=== PATIENT | female | born 1985 | race Caucasian/White ===

== ENCOUNTER → 2019-09-26 13:53 | Outpatient (REF) | payer BC, SELFPAY | LOC: ANHLAB 13:53 | PROVIDERS: PCP Physician Assistant; Visit Provider Nurse Practitioner Family | DX: D22.5 Melanocytic nevi of trunk (principal) | CPT/HCPCS: 88305 ==

== ENCOUNTER → 2019-10-25 12:36 | Outpatient (CLI) | payer BC, SELFPAY ==
--- NOTE | ~2019-10-25 | US_ITS ---
EXAMINATION: US OB <= 14 weeks fetus DATE: 10/25/2019 13:15 INDICATION: First trimester dating TECHNIQUE: Real-time pelvic transabdominal and transvaginal ultrasound was performed. COMPARISON: None. FINDINGS: The uterus measures 9.2 x 5.7 x 6.0 cm. There is an intrauterine gestational sac. A yolk s ac is identified. heart motion is identified measuring 164 beats per minute (bpm) by M-mode Dop pler. The crown rump length measures 1.6 cm , which correlates with an estimated gestational ag e of 8 weeks and 0 day(s) (+/-) 5 day(s). The left ovary is not visualized however no left adnexal abnormality is seen. The right ovary measure s 3.8 x 2.5 x 3.9 cm. There is no free fluid in the pelvis. IMPRESSION: 1. Live intrauterine with an estimated gestational age of 8 weeks and 0 day(s) (+/-) 5 day( s) and an estimated delivery date of 06/05/2020. Reviewed, dictated and finalized at location A. IMPRESSION: 1. Live intrauterine with an estimated gestational age of 8 weeks and 0 day(s) (+/-) 5 day(s) and an estimated delivery date of 06/05/2020.
== END ==
PROVIDERS: Visit Provider Obstetrics & Gynecology
DX: O26.21 Pregnancy care for patient with recurrent pregnancy loss, first trimester (principal); Z3A.08 8 weeks gestation of pregnancy
CPT/HCPCS: 76801

== ENCOUNTER → 2020-01-05 07:19 | Outpatient (CLI) | payer BC, SELFPAY ==
--- NOTE | ~2020-01-05 | US_ITS ---
US OB >= 14 weeks Fetus DATE: 01/05/2020 08:33 INDICATION: anatomy survey TECHNIQUE: Real-time imaging and Doppler analysis COMPARISON: 10/25/2019 obstetrical ultrasound FINDINGS: Live knapp intrauterine gestation, fetus in vertex presentation. The placenta is anteri or, with the lower margin 3.9 cm above the internal os. There is a subjectively normal amount of amni otic fluid. The placenta is anterior. Cerebral ventricles and cerebellum appear normal. Normal nuchal fold. The spine appears normal on transverse and longitudinal views. upper lip appears normal. spine appears intact on t ransverse and longitudinal views. 4 chamber heart. The diaphragm is intact. Fluid is demo nstrated in the stomach and urinary bladder. The kidneys appear normal, without elpidio dence of hydronephrosis. Three-vessel umbilical cord with normal appearing insertion at abdomin al wall. movement is demonstrated. heart rate 147 bpm. Biparietal diameter 4.19 cm; 18 weeks 5 days estimated gestational age Head circumference 15.43 cm; 18 weeks 3 days Abdominal circumference 13.02 cm; 18 weeks 4 days Femur length 2.65 cm; 18 weeks Composite age by Hadlock formula is 18 weeks 3 days +/- 1 week 2 days; ODELL by current ultrasound woul d be 06/04/2020, comparing closely to the ODELL of 06/05/2020 by both LMP and the prior obstetrical ultra sound examination of 10/25/2019. Estimated weight is 235.2 +/- 35.3 g. HC/AC 1.19, within normal range of 1.08-1.27 Femur length/head circumference 17.17, within normal range of 15.93-18.13 IMPRESSION: Normal anatomy survey Reviewed, dictated and finalized at Location A. Reviewed, dictated and finalized at location A. IMPRESSION: Normal anatomy survey
== END ==
PROVIDERS: Visit Provider Obstetrics & Gynecology
DX: Z34.92 Encounter for supervision of normal pregnancy, unspecified, second trimester (principal); Z3A.00 Weeks of gestation of pregnancy not specified
CPT/HCPCS: 76805

== ENCOUNTER 2020-04-30 16:17 | Observation (INO) | payer BC, SELFPAY ==
[2020-04-30 17:42] VITALS: BP 117/71; PULSE 89
[2020-04-30 17:45] VITALS: BP 127/75; PULSE 100; BMI 29.7
[2020-04-30] MEDS: TERBUTALINE SULFATE 1 MG/ML VIAL 0.25 MG SUB-Q (17:45)
--- NOTE | 2020-04-30 17:45 | OBADM ---
This patient, Lily Diallo, admitted to the OB room Labor/Delivery/Recovery 118 for observation. Patient/family oriented to hospital policies and general routines including ID bracelet, bed and alarms, visiting hours, pain management, procedures, bathroom and other care routines, personal items, smoking policy, room service/diet, and visiting hours. Patient/Family are encouraged to report perceived risks to care and to ask questions if they do not understand what they are told or what they should do.
[2020-04-30 18:00] VITALS: BP 128/81; PULSE 141
[2020-04-30 18:15] VITALS: BP 95/56; PULSE 101
--- NOTE | 2020-05-24 09:32 | PM.OBTRLD ---
OB - Triage/Final Diagnosis Visit Information Comments/Additional reasons for admission: I have assessed the risk for this patient, Lily Diallo, and determined that she would benefit from observation care. Final Diagnosis (1) contractions: Code(s): O47.9 - False labor, unspecified Status: Acute
== END 2020-04-30 18:53 | disposition home or self-care (01) ==
PROVIDERS: Admitting Provider Obstetrics & Gynecology; PCP Physician Assistant; Visit Provider Obstetrics & Gynecology
DX: O47.03 False labor before 37 completed weeks of gestation, third trimester (principal); Z3A.34 34 weeks gestation of pregnancy
CPT/HCPCS: 96372; G0378; G0379; J3105

== ENCOUNTER 2020-05-27 09:26 | Outpatient (RCR) | payer BC, SELFPAY ==
[2020-04-15 09:58] VITALS: BP 113/67; PULSE 105
[2020-04-19 09:38] VITALS: BP 108/65; PULSE 90
[2020-04-22 09:54] VITALS: BP 114/67; PULSE 99
[2020-04-26 10:07] VITALS: BP 111/65; PULSE 93
[2020-05-03 09:52] VITALS: BP 104/68; PULSE 115
[2020-05-06 14:52] VITALS: BP 131/75; PULSE 93
[2020-05-10 13:35] VITALS: BP 127/78; PULSE 101
[2020-05-13 09:55] VITALS: BP 115/69; PULSE 101
[2020-05-16 16:41] VITALS: BP 123/69; PULSE 95
[2020-05-20 09:49] VITALS: BP 117/73; PULSE 97
[2020-05-24 09:58] VITALS: BP 124/72; PULSE 105
[2020-05-27 09:53] VITALS: BP 119/69; PULSE 116
== END 2020-06-02 08:15 | disposition home or self-care (01) ==
LOC: ANHOBOP 09:26
PROVIDERS: PCP Physician Assistant; Visit Provider Obstetrics & Gynecology
DX: O24.419 Gestational diabetes mellitus in pregnancy, unspecified control (principal); Z3A.32 32 weeks gestation of pregnancy; Z3A.33 33 weeks gestation of pregnancy; Z3A.34 34 weeks gestation of pregnancy; Z3A.35 35 weeks gestation of pregnancy; Z3A.36 36 weeks gestation of pregnancy; Z3A.37 37 weeks gestation of pregnancy; Z3A.38 38 weeks gestation of pregnancy
CPT/HCPCS: 59025

== ENCOUNTER 2020-05-30 04:55 | Inpatient (IN) | payer BC, SELFPAY ==
[2020-05-30] VITALS (71 sets, daily range): BP systolic 88–131; BP diastolic 46–90; PULSE 36–116; RESP 16–20; TEMP 36.2–37.3; O2SAT 96–100; BMI 30.3
[2020-05-30 05:38] LABS: Glucose Point of Care 95 (65-105)
[2020-05-30 05:41] LABS: Basophils Percent Auto 0.4 % (0.2-1.2); Eosinophils Absolute Auto 0.2 K/mm3 (0-0.3); Eosinophils Percent Auto 1.5 % (0-4.4); Hematocrit 40.1 % (37.0-47.0); Hemoglobin 13.4 g/dL (12.0-15.0); Immature Granulocyte Absolute 0.11 K/mm3 (0.00-0.031); Immature Granulocyte Percent A 1.1 % (0-0.5); Lymphocytes Absolute Auto 2.02 K/mm3 (0.9-3.2); Lymphocytes Percent Auto 19.3 % (18.3-44.2); Mean Corpuscular HGB Conc 33.4 g/dl (32-36); Mean Corpuscular Hemoglobin 30.5 pg (26-34); Mean Corpuscular Volume 91.3 fl (80-100); Monocytes Absolute Auto 0.7 K/mm3 (0.1-0.6); Monocytes Percent Auto 6.8 % (2.6-8.5); Neutrophils Absolute Auto 7.4 K/mm3 (1.3-6.7); Neutrophils Percent Auto 70.9 % (45.5-73.1); Platelet Count Result 166 k/mm3 (150-375); Red Blood Count 4.39 M/mm3 (4.2-5.4); Red Cell Distribution Width 13.3 % (11.5-14.5); White Blood Count 10.5 K/mm3 (4.5-10.0)
--- NOTE | 2020-05-30 05:49 | LDADM ---
This patient, Lily Diallo, was admitted to Labor/Delivery/Recovery 104 on 05/30/20 at 04:55. Plans for labor, pain management and were discussed with patient. Patient/family oriented to hospital policies and general routines including ID bracelet, bed and alarms, visiting hours, pain management, procedures, bathroom and other care routines, personal items, smoking policy, room service/diet and guest tray routines, security routines, and visiting hours. Patient/Family are encouraged to report perceived risks to care and to ask questions if they do not understand what they are told or what they should do. See OBIX for further documentation.
[2020-05-30] MEDS: ONDANSETRON INJ 4 MG/2 ML VIAL IV PUSH (06:28)
[2020-05-30] MEDS: LACTATED RINGERS 1,000 ML 125 ML IV CONT (06:28)
--- NOTE | 2020-05-30 06:31 | WPDANESEPP ---
Anes - Eval Pre Procedure Procedure: labor epidural Date/Time: 05/30/20 06:06 Surgeon: Darnell Preop Diagnosis: labor pain Pre Op Diagnosis: Induction of Labor Patient Data Age: 34 Gender: F Height: 1.64 m Weight: 82 kg Last Vital Signs Pulse 98 05/30/20 06:29 BP 110/65 05/30/20 06:29 Pulse Ox 100 05/30/20 06:29 Allergies Allergy/AdvReac Type Severity Reaction Status Date / Time No Known Allergies Allergy Verified 10/05/19 09:54 Home Medications Medication Instructions Recorded Confirmed Type PNV cmb#95-ferrous fumarate-FA 1 tablet PO HS 04/19/20 05/10/20 History [] ergocalciferol (vitamin D2) 50,000 unit PO WEEKLY 04/19/20 05/27/20 History [Vitamin D2] insulin NPH isoph U-100 human 6 unit SUBCUT HS 04/19/20 05/10/20 History sertraline 50 mg PO HS 04/19/20 05/10/20 History Laboratory Tests 05/30/20 05/30/20 05/30/20 05:32 05:34 05:34 WBC 10.5 K/mm3 H K/mm3 (4.5-10.0) RBC 4.39 M/mm3 M/mm3 (4.2-5.4) Hgb 13.4 g/dL g/dL (12.0-15.0) Hct 40.1 % % (37.0-47.0) MCV 91.3 fl fl (80-100) MCH 30.5 pg pg (26-34) MCHC 33.4 g/dl g/dl (32-36) RDW 13.3 % % (11.5-14.5) Plt Count 166 k/mm3 k/mm3 (150-375) MPV 11.0 fl H fl (7.4-10.4) Immature Gran % (Auto) 1.1 % H % (0-0.5) Neut % (Auto) 70.9 % % (45.5-73.1) Lymph % (Auto) 19.3 % % (18.3-44.2) Coffey % (Auto) 6.8 % % (2.6-8.5) Eos % (Auto) 1.5 % % (0-4.4) Baso % (Auto) 0.4 % % (0.2-1.2) Lymph # (Auto) 2.02 K/mm3 K/mm3 (0.9-3.2) Coffey # (Auto) 0.7 K/mm3 H K/mm3 (0.1-0.6) Eos # (Auto) 0.2 K/mm3 K/mm3 (0-0.3) Baso # (Auto) 0.0 K/mm3 K/mm3 (0.0-0.1) Abs Immat Gran (auto) 0.11 K/mm3 H K/mm3 (0.00-0.031) Absolute Neuts (auto) 7.4 K/mm3 H K/mm3 (1.3-6.7) Absolute Nucleated RBC 0.0 K/mm3 K/mm3 (0.0-0.012) Nucleated RBC % 0.0 % % (0.0-0.2) POC Capillary Glucose 95 mg/dl mg/dl (65-105) RPR Pending Patient hx anesthesia problems: none Family hx anesthesia problems: none [facility] Past Medical History Medical History (Updated 05/30/20 @ 06:32 by Skyler Bennett CRNA) contractions Family History Family History (Updated 05/10/20 @ 13:43 by Carmen Angela RN) Father Malignant neoplasm of prostate Hypertension Social History Social History Smoking status: Never smoker Substance use: never Spiritual care concerns: No Exam Day of Procedure 05/30/20 06:31 Patient weight: normal Heart: regular rate and rhythm Lungs: clear to auscultation and normal air movement Airway: Mallampati scale class II Neurological: alert and oriented
[2020-05-30] MEDS: OXYTOCIN 30 UNITS/NS 500 ML 30 UNITS/500 ML BAG IV CONT ×2 (06:47→11:25)
--- NOTE | 2020-05-30 07:56 | WPDOBADMIT ---
Obstetrics - Admit Note Admission Note: AROm meconium stained fluid record reviewed. No pertinent additions to the history and/or any subsequent changes in the physical findings that are not consistent with the expected course of the were found. Additions to the history and/or subsequent changes in the physical findings follow. None.
[2020-05-30 09:13] LABS: Glucose Point of Care 69 (65-105)
--- NOTE | 2020-05-30 11:09 | PM.OBPRVD ---
OB - Delivery Note Procedure Delivery date: 05/30/20 events: Gestational Diabetes Intrapartal events: None Induction method: AROM and per pitocin protocol Delivery monitor: external FHT and external uterine Route of delivery: Laceration Description: Vaginal - 2nd Degree Delivery repair: vicryl Quantitative Blood Loss (ml): 310 Anesthesia type: Epidural Disposition: floor Narrative: mild shoulder dystocia. Cody and rotation of posterior shoulder and gentle traction. Baby Date of : 05/30/20 Time of : 10:49 Weeks of gestation at delivery: 39 Weight (pounds): 8 Weight (ounces): 6 presentation: vertex position: Right Occiput Anterior Placenta delivery description: Spontaneous cord vessel description: 3 Vessels, Nuchal Cord and Loose score one minute: 6 score five minutes: 8
[2020-05-30 11:38] LABS: Rapid Plasma Reagin Non-Reactive (NonReactive)
[2020-05-30] MEDS: WITCH HAZEL 40 PADS 1 PAD TOPICAL (12:43)
[2020-05-30] MEDS: BENZOCAINE 20% AER SPR (*SP) 56 GM CAN 1 SPRAY TOPICAL (12:43)
--- NOTE | 2020-05-30 13:26 | OBPPTRN ---
Patient transferred to post room # 280 via wheelchair. Support person present. Oriented to unit, room, information board, rooming in, admission packet and security measures. Patient verbalizes understanding.
[2020-05-30] MEDS: ACETAMINOPHEN 325 MG TABLET 650 MG PO (17:06)
[2020-05-30] MEDS: IBUPROFEN 600 MG TABLET PO (19:19)
[2020-05-30] MEDS: MULTIVIT/MIN/PREN/FOL AC/IRON TABLET 1 TAB PO (20:11)
[2020-05-30] MEDS: SERTRALINE HCL 50 MG TABLET PO (20:11)
[2020-05-31 04:35] VITALS: BP 121/74; PULSE 70; RESP 18; TEMP 36.5; O2SAT 100
[2020-05-31] MEDS: IBUPROFEN 600 MG TABLET PO (04:36)
[2020-05-31 05:29] LABS: Hematocrit 38.2 % (37.0-47.0); Hemoglobin 12.5 g/dL (12.0-15.0)
[2020-05-31 09:00] VITALS: BP 114/72; PULSE 96; RESP 20; TEMP 36.7
--- NOTE | 2020-05-31 10:16 | WPDANLDPN2 ---
Anes-Prog Note L&D Date/Time: 05/31/20 10:16 Comfortable throughout: labor and delivery Neuraxial method: epidural Epidural/Spinal procedure site: clean & non-tender Neuro status: Neuro function grossly intact. Cardiovascular status: normal Respiratory status: normal Airway patency: baseline Mental status: baseline Post-Op hydration status: normal Vital Signs: Last Vital Signs Temp 36.7 C 05/31/20 09:00 Pulse 96 05/31/20 09:00 Resp 20 05/31/20 09:00 BP 114/72 05/31/20 09:00 Pulse Ox 100 05/31/20 04:35 Pain score (VAS): no complaints Post-procedural complaints: none Patient feedback: Patient satisfied with anesthetic care.
--- NOTE | 2020-05-31 11:44 | PM.OBPNVD ---
OB - PN: Subj Subjective Date/time seen: 05/31/20 11:44 Patient comments: no complaints and pain well controlled baby status: doing well and bottle feeding well OB - PN: Obj Data Labs CBC & Chem 7: 05/31/20 04:42 Labs: Laboratory Results - last 24 hr 05/31/20 04:42 Hgb 12.5 Hct 38.2 OB - PN A/P Plan day: 1 Plan: routine care, discharge home, follow up 6 weeks and other (plans Trinessa until vasectomy) Time Spent With Patient Time: Total time spent is greater than 50% in coordination of care (as documented) at patient's floor/unit and/or counseling patient: Exam : Bimanual exam- vagina & uterus: other (Uterus firm, nt @U)
[2020-06-02 08:25] VITALS: BP 128/76; PULSE 107; RESP 20; TEMP 36.7; O2SAT 100
--- NOTE | 2020-06-30 01:59 | PM.OBDSVD ---
DS: Admitting Diagnosis Admitting Diagnosis Admitting Diagnosis: induction of labor DS: Discharge Diagnosis Discharge Diagnosis (1) (normal spontaneous vaginal delivery): Code(s): O80 - Encounter for full-term uncomplicated delivery Status: Acute OB - DS: Summary OB Procedures : NST and Ultrasound OB Procedures Intrapartum: Spontaneous Vag Delivery OB Procedures: : None Peripartum Data Infant Delivery Method: Natural Vaginal Laceration Description: Vaginal - 2nd Degree complications: none Time Spent with Patient Time attestation: Total time spent providing and/or coordinating discharge services: DS: Data Data Completed and Pending Completed studies during hospitalization: Pending at discharge 05/30/20 10:56 Surgical [PTH] Routine Discharge Plan Discharge Attending physician on discharge: Saul Patrick Discharging Clinician: Julita Watkins Anticipated Discharge Date/Time: 05/31/20 11:44 Patient Disposition: Home, Self-Care Activity: may shower and pelvic rest Diet: regular Discharge Instructions: Education: Mom and Baby Guide Given to: Mother Follow-Up: Call your delivering provider's office for an appointment to be seen in: 6 Weeks Mom and baby should come to the [facility] for the follow-up appointment. Appointment Date/Time: June 02, 2020 at 8:00 am What to expect at your follow-up visit: Physical Assessment Call [phone] if you are unable to keep your appointment time. BREAST CARE: * Wear a snug supportive bra. * For engorgement discomfort: Bottle Feeding: * May apply ice packs PERINEAL CARE: * Until bleeding stops, use your linn bottle after urinating * Change your pad frequently throughout the day * No tub baths until seen by your physician - You may shower ACTIVITY: * Rest as much as possible. * Do not exercise or lift anything heavier than your baby (such as laundry or other children.) * Avoid stairs or driving as much as possible. * Do not put anything into the vagina. No douching, tampons, or sexual activity until seen by physician. NOTIFY PHYSICIAN IF YOU HAVE ANY QUESTIONS OR IF ANY OF THE FOLLOWING SYMPTOMS OCCUR: * If your perineum becomes red, swollen, or more painful than what you have experienced in the hospital. * If your vaginal bleeding becomes foul smelling. * If your vaginal bleeding becomes more heavy than a period or if your bleeding changes from pink to bright red. However, you may pass an occasional walnut-sized clot once or twice for the first week . * If you experience a sharp, shooting pain in you calves. * If you discover a hard, reddened area on your breast or if you experience flu-like symptoms. DIET: * Eat regular, well-balanced meals. * Drink plenty of fluids daily. Patient Instructions: Antibiotic Form Stand Alone Forms: General Discharge Information Follow-up/Referrals: Saul Patrick MD [Physician] - 6 Weeks Discharge Medications: New norgestimate-ethinyl estradiol 0.18/0.215/0.25 mg-35 mcg (28) tablet 1 tablet PO DAILY Qty: 84 RF: 1 Continued ergocalciferol (vitamin D2) [Vitamin D2] 1,250 mcg (50,000 unit) Capsule 50,000 unit PO WEEKLY Qty: 12 RF: 4 sertraline 50 mg tablet 50 mg PO HS RF: 0 PNV cmb#95-ferrous fumarate-FA [] 28 mg iron- 800 mcg Tablet 1 tablet PO HS RF: 0 Discontinued insulin NPH isoph U-100 human 100 unit/mL Cartridge 6 unit SUBCUT HS RF: 0 Date of admission: 05/30/20 04:55 Primary Care Provider: Emelyn,Yvonne Admitting Provider: Saul Patrick Attending physician on admission: Julita Watkins Condition: Stable
== END 2020-05-31 14:00 | disposition home or self-care (01) | DRG 807 ==
LOC: ANHOB2 05-31 11:49 → ANHLDR 06-03 06:46 → ANHOB2 06-03 06:46
PROVIDERS: Admitting Provider Obstetrics & Gynecology; PCP Physician Assistant; Visit Provider Obstetrics & Gynecology Gynecology
DX: O24.429 Gestational diabetes mellitus in childbirth, unspecified control (principal); Z37.0 Single live birth; Z3A.39 39 weeks gestation of pregnancy; O70.1 Second degree perineal laceration during delivery; O66.0 Obstructed labor due to shoulder dystocia; O69.81X0 Labor and delivery complicated by cord around neck, without compression, not applicable or unspecified; O99.344 Other mental disorders complicating childbirth; F41.9 Anxiety disorder, unspecified
CPT/HCPCS: 36415; 82948; 85014; 85018; 85025; 86592; 86850; 86900; 86901; 88307; A9270; J2405; J2590; J2795; J7120

== ENCOUNTER 2023-04-01 10:09 | Emergency (ER) | payer BC, SELFPAY ==
--- NOTE | ~2023-04-01 | XR_ITS ---
Left Hand Technique: PA, oblique, and lateral views were obtained. Clinical History: Laceration Findings: No acute fracture or dislocation is seen. Osseous alignment is anatomic. Joint spaces are p reserved. Soft tissues are unremarkable. Impression: Unremarkable left hand. Reviewed, dictated and finalized at location M. MODELING SPECIALIST Impression: Unremarkable left hand.
[2023-04-01 10:15] VITALS: BP 120/73; PULSE 98; RESP 18; TEMP 36.8; O2SAT 99
--- NOTE | 2023-04-01 11:54 | ED.WOUNDLAC ---
HPI - Wound/Laceration General Chief Complaint: Wound/Laceration Stated Complaint: hand lac Time Seen by Provider: 04/01/23 10:44 History of Present Illness HPI narrative: 37-year-old female reports for evaluation for laceration to her left palm that occurred prior to arrival. Patient states she accidentally broke a wine glass and tried to catch , cutting her left palm on a shard of glass. Last tetanus unknown. Denies difficulty with range of motion of her fingers. Related Data Home Medications Medication Instructions Recorded Confirmed sertraline 50 mg tablet 50 mg PO HS 04/19/20 04/01/23 Allergies Allergy/AdvReac Type Severity Reaction Status Date / Time No Known Allergies Allergy Verified 04/01/23 10:18 Review of Systems Review of Systems: CONSTITUTIONAL: Denies fever, chills, or sweats. EYES: Denies visual changes, redness, or discharge. ENT: Denies rhinorrhea, congestion, sore throat, or otalgia. CARDIOVASCULAR: Denies chest pain, palpitations, or edema. RESPIRATORY: Denies cough or dyspnea. GASTROINTESTINAL: Denies abdominal pain, nausea, vomiting, or diarrhea. GENITOURINARY: Denies dysuria or hematuria. SKIN: See HPI MUSCULOSKELETAL: Denies back pain, joint pain, or myalgia. NEUROLOGIC: Denies headache, numbness, or weakness. PSYCHIATRIC: Denies anxiety or depression. [facility] Past Medical History Medical History (normal spontaneous vaginal delivery) contractions Family History Family History Father Malignant neoplasm of prostate Hypertension Social History Social History Smoking status: Never smoker Substance use: never Spiritual care concerns: No Exam Narrative: GENERAL: Well-appearing, well-nourished, and in no acute distress. HEAD: Normocephalic, atraumatic NECK: Supple. CHEST: Clear to auscultation. No respiratory distress. HEART: Regular rate and rhythm. No murmur heard. Normal peripheral pulses. EXTREMITIES: Normal range of motion. No edema. SKIN: 1 cm laceration to the distal 3rd metacarpal with mild bleeding. Most of the laceration is superficial with a small area that extends into the subcutaneous tissue. No deep structures or foreign bodies visualized. Patient has full range of motion of all of her digits. NEURO: No focal deficits. Alert and oriented x3 Course Vital Signs Vital signs: Vital Signs Temperature 98.3 F 04/01/23 10:15 Pulse Rate 98 04/01/23 10:15 Respiratory Rate 18 04/01/23 10:15 Blood Pressure 120/73 04/01/23 10:15 Pulse Oximetry 99 04/01/23 10:15 Temperature 98.3 F 04/01/23 10:15 Pulse Rate 98 04/01/23 10:15 Respiratory Rate 18 04/01/23 10:15 Blood Pressure 120/73 04/01/23 10:15 Pulse Oximetry 99 04/01/23 10:15 Procedures Laceration Laceration 1: Date: 04/01/23 Time: 11:57 Site: hand Side (If applicable): left Size (cm): 1 Description: linear Depth: simple, single layer Local Anesthetic: lidocaine 1% Amount of anesthesia used (mL): 2 Pre-repair: wound explored, irrigated and irrigated extensively ====== Skin Level ====== Skin layer closed with: nylon Size (cm): 5-0 Number of sutures: 1 Technique: simple, interrupted ====== Subcutaneous Layer ====== ====== Muscle Layer ====== ====== Tendon Layer ====== MDM - Wound/Laceration MDM Narrative Medical decision making narrative: 37-year-old female reports for evaluation for laceration to the left palm that occurred prior to arrival. See HPI for further history. Vitals are stable. Exam is significant for the above. X-ray shows no abnormality or foreign body visualized. Local anesthetic applied and 1 suture placed without complications.
[2023-04-01] MEDS: LIDOCAINE HCL 1% LOCAL INJ 10 ML VIAL 5 ML INFILTRATE (12:06)
[2023-04-01] MEDS: TETANUS,DIPHTHERIA,AC PERTUSSIS ADULT (0.5 ML) BOOSTRIX IM (12:06)
[2023-04-01 12:10] VITALS: BP 119/76; PULSE 67; RESP 15; O2SAT 100
== END 2023-04-01 12:11 | disposition home or self-care (01) ==
PROVIDERS: Emergency Provider Physician Assistant; PCP Physician Assistant
DX: S61.412A Laceration without foreign body of left hand, initial encounter (principal); Z23 Encounter for immunization; W25.XXXA Contact with sharp glass, initial encounter
CPT/HCPCS: 12001; 73130; 90471; 90715; 99283

== ENCOUNTER 2023-06-27 09:20 | Outpatient (CLI) | payer BC, SELFPAY ==
--- NOTE | ~2023-06-27 | MMUS_ITS ---
EXAMINATION: MM diagnostic imna BI w miranda, US breast BI complete HISTORY: 12:00 right breast lump reportedly palpated by referring physician TECHNIQUE: ML, MLO and CC 3-D tomosynthesis images of both breasts were performed and synthetic 2-D i mages were generated. CAD analysis was submitted and interpreted. High resolution bilateral complete breast ultrasound examination including all 4 quadrants and subareolar areas was performed. COMPARISON: None BREAST PARENCHYMAL COMPOSITION: The breasts are extremely dense, which lowers the sensitivity of mamm ography. FINDINGS: MAMMOGRAPHIC FINDINGS: There is a biopsy marker in the central right breast; history of prior benign right breast biopsy. No reproducible suspicious mass, architectural distortion or any malignant calcification, skin thicke alyx or retraction is evident. The extremely dense stroma however limits the sensitivity of the mammo gram examination and may obscure masses. Complete bilateral breast ultrasound examination was perform ed. ULTRASOUND: Right breast: 1:00 4 cm from nipple: Parallel circumscribed mildly complicated cyst, with through transmission post erior enhancement. This lesion measures approximately 3.8 x 8 x 3.7 mm. There is no internal vascular ity. The sonographic features suggest probably benign finding. No suspicious mass or shadowing or other significant sonographic abnormality of either breast is dete cted. IMPRESSION: 1. Probably benign, dictated cysts of right breast 1:00 4 cm from nipple 2. Six-month targeted right breast ultrasound follow-up examination is recommended BI-RADS category 3, probably benign findings. Reviewed, dictated and finalized at location A. IMPRESSION: 1. Probably benign, dictated cysts of right breast 1:00 4 cm from nipple 2. Six-month targeted right breast ultrasound follow-up examination is recommen ded BI-RADS category 3, probably benign findings.
== END 2023-06-27 09:21 | disposition home or self-care (01) ==
PROVIDERS: PCP Physician Assistant; Visit Provider Nurse Practitioner
DX: R92.8 Other abnormal and inconclusive findings on diagnostic imaging of breast (principal)
CPT/HCPCS: 76641; 77062; 77066; G0279

== ENCOUNTER 2024-02-03 10:16 | Outpatient (CLI) | payer BC, SELFPAY ==
--- NOTE | ~2024-02-03 | US_ITS ---
EXAMINATION TYPE: US breast RT limited COMPARISON: 06/27/2023 REASON FOR STUDY: Right breast cyst TECHNIQUE: Targeted sonographic evaluation of the right breast was performed. INTERPRETATION: At the 1:00 position right breast, 4 cm from the nipple, there is a 10 x 4 x 11 mm somewhat lobulated parallel, wider than tall anechoic cyst. There is an adjacent additional 5 mm simple cyst. No solid or otherwise suspicious lesions seen in the regions scanned. IMPRESSION: Benign, simple cysts in the right breast at the 1:00 position, as detailed above. No suspicious lesio n identified. BI-RADS CATEGORY: BI-RADS 2: Benign Reviewed, dictated and finalized at location M. STERED NURSE MIDWIFE IMPRESSION: Benign, simple cysts in the right breast at the 1:00 position, as detailed abov e. No suspicious lesion identified. BI-RADS CATEGORY: BI-RADS 2: Benign
== END 2024-02-03 10:17 | disposition home or self-care (01) ==
LOC: CHSIMG 10:17
PROVIDERS: PCP Physician Assistant; Visit Provider Obstetrics & Gynecology Gynecology
DX: R92.8 Other abnormal and inconclusive findings on diagnostic imaging of breast (principal)
CPT/HCPCS: 76642

== ENCOUNTER 2024-03-18 19:21 | Emergency (ER) | payer BC, SELFPAY ==
[2024-03-18 19:28] VITALS: BP 133/73; PULSE 107; RESP 16; TEMP 36.9; O2SAT 99
--- NOTE | 2024-03-18 19:28 | ED.URI ---
HPI - URI/Sore Throat General Chief Complaint: Upper Respiratory Infection Stated Complaint: sorethroat Source: patient, RN notes reviewed and old records reviewed Mode of arrival: ambulatory Limitations: no limitations History of Present Illness HPI Narrative: Patient presents with complaints of 3 day history of sore throat. She became worried today when throat pain worsened and she developed some body aches. She denies any fever, chills, sweats. She has been taking ibuprofen for pain with moderate relief. She is able to swallow without difficulty, although she does state this hurts more. She voices no other concerns or complaints at this time. Related Data Home Medications ?Medication ?Instructions ?Recorded ?Confirmed ?Last Taken ?Type fluoxetine 20 mg capsule 20 mg PO QPM 03/18/24 03/18/24 Unknown History Allergies Allergy/AdvReac Type Severity Reaction Status Date / Time No Known Allergies Allergy Verified 03/18/24 19:24 Review of Systems Review of Systems: All systems reviewed & are unremarkable except as noted in HPI and below Constitutional: Constitutional: Reports no additional constitutional complaints and Reports body ache(s) ENT: Reports system reviewed and no additional complaints, except as documented and Reports sore throat Cardiovascular: Cardiovascular: Reports no additional cardiovascular complaints Respiratory: Respiratory: Reports no additional respiratory complaints Gastrointestinal: Gastrointestinal: Reports no additional gastrointestinal complaints [facility] Past Medical History Medical History (normal spontaneous vaginal delivery) contractions Family History Family History Father Malignant neoplasm of prostate Hypertension Social History Social History Smoking status: Never smoker Substance use: never Spiritual care concerns: No Comments At the time of my signature, I reviewed and agree with the nursing past medical, surgical, social, and family history. There is no relevant family history pertinent to the patient complaint. Exam Const: General: cooperative, no acute distress, alert and awake Orientation/consciousness: oriented to person, oriented to place and oriented to time HENMT: Head: normal to inspection Ears: TM's normal bilaterally Mouth: Yes moist mucous membranes Throat: posterior oropharynx abnormal erythema and exudates Resp: Effort & Inspection: normal respiratory effort and able to speak in complete sentences Auscultation: clear to auscultation bilaterally, no crackles, no rales, no rhonchi and no wheezes Cardio: Palpation: normal PMI Rate: regular rate Rhythm: regular rhythm Heart sounds: S1 normal heart sound present and S2 normal heart sound present Neuro: General: oriented to person, oriented to place and oriented to time Cranial nerves: Yes CN's II-XII intact bilaterally Psych: Appearance: grossly normal Thought process: Normal thought process present Insight: Good insight present (Psych) Judgement: Good judgement present (Psych) Course Course Level of Care: Express Care Visit Vital Signs Vital signs: Reviewed MDM - URI/Sore Throat MDM Narrative Medical decision making narrative: Positive rapid strep. Negative COVID, negative flu. Start penicillin. Work note provided. Discharge instructions reviewed with patient, as well as provided in writing per nursing staff. The instructions also include specific and strict return/GO TO THE ER as well as f/u information. All questions have been answered, and the patient deny any further questions with discharge and discharge plan. Some parts of this dictation were generated by voice recognition software and may contain typographical and/or grammatical inaccuracies. Differential Diagnosis Differential diagnosis: Likely upper respiratory infection, otitis media, viral infection, influenza and pharyngitis Medical Records Attestation: I reviewed the patient's medical records. Lab Data Attestation: I reviewed the patient's lab results. Discharge Plan Discharge Clinical Impression: Strep pharyngitis Patient Disposition: Home, Self-Care Condition: Stable Instructions: Antibiotic Form, Strep Throat (ED) Additional Instructions: Take medications as prescribed. Follow with primary care provider. Emergency department for new or worse symptoms. Please discard toothpaste and toothbrush after 48 hours on antibiotic therapy. Patient Language: Serbian Prescriptions: New penicillin V potassium 500 mg tablet 500 mg PO Q12H 10 Days Qty: 20 0RF No Action fluoxetine 20 mg capsule 20 mg PO QPM Follow-up/Referrals: Emelyn,LIBRADO Acosta [Primary Care Provider] - 2 Weeks Stand Alone Forms: Work/School Release IP Time of Disposition: 19:41
[2024-03-18 19:39] LABS: EDSTREPNEGPOS1 Positive (Negative)
[2024-03-18 19:41] LABS: EDCOVIDSCREEN Negative (Negative); EDINFLUASCREEN Negative (Negative); EDINFLUBSCREEN Negative (Negative)
== END 2024-03-18 19:49 | disposition home or self-care (01) ==
PROVIDERS: Emergency Provider Nurse Practitioner Family; PCP Physician Assistant
DX: J02.0 Streptococcal pharyngitis (principal); Z20.822 Contact with and (suspected) exposure to COVID-19
CPT/HCPCS: 87426; 87804; 87880; 99213; G0463